=== PATIENT | male | born 1945 | race American Indian/Alaskan Native ===

== ENCOUNTER 2019-04-06 09:01 | Outpatient (CLI) | payer MEDICARE ==
--- NOTE | 2019-04-06 10:25 | Ultrasound Report ---
ULTRASOUND RENAL INDICATION / CLINICAL INFORMATION: N17.9) ACUTE KIDNEY INJURY. COMPARISON: None available. FINDINGS: RIGHT KIDNEY: Length = 10.6 cm. [normal > 9 cm] - Parenchymal Thickness = 1.6 cm. [normal > 1.5 cm] - Echogenicity: Increased - Hydronephrosis: None. - Cyst or mass: A 2.2 x 1.7 x 1.8 cm cyst at the inferior pole. - Stones: None seen. LEFT KIDNEY: Length = 11.4 cm. [normal > 9 cm] - Parenchymal Thickness = 1.6 cm. [normal > 1.5 cm] - Echogenicity: Increased - Hydronephrosis: None. - Cyst or mass: No significant abnormality. - Stones: None seen. URINARY BLADDER: No significant abnormality. FREE FLUID: None. ADDITIONAL FINDINGS: None. IMPRESSION: Nonspecific renal parenchymal disease. Right renal cyst, simple. Signer Name: Livan Gunderson Jr, MD Signed: 04/06/2019 10:21 AM Workstation Name: [id number]
== END 2019-04-06 09:02 | disposition home or self-care (01) ==
LOC: US 09:01
PROVIDERS: ATTEND Internal Medicine Nephrology
DX: N28.1 Cyst of kidney, acquired (principal); N17.9 Acute kidney failure, unspecified; I10 Essential (primary) hypertension
CPT/HCPCS: 76770